=== PATIENT | female | born 1970 | race Caucasian/White ===

== ENCOUNTER → 2025-03-19 09:50 | Outpatient (REF) | payer SELFPAY | LOC: RAD 09:50 | PROVIDERS: ATTENDING PHYSICIAN Physician Assistant | DX: E78.2 Mixed hyperlipidemia (principal) | CPT/HCPCS: 75571 ==

== ENCOUNTER → 2025-08-18 11:17 | Outpatient (REF) | payer OTHER, SELFPAY | LOC: REG 11:17 | PROVIDERS: ATTENDING PHYSICIAN Physician Assistant | DX: R06.2 Wheezing (principal) | CPT/HCPCS: 71046 ==

== ENCOUNTER → 2025-10-11 09:38 | Outpatient (REF) | payer OTHER, SELFPAY | LOC: HWRAD 09:38 | PROVIDERS: ATTENDING PHYSICIAN Physician Assistant | DX: F17.210 Nicotine dependence, cigarettes, uncomplicated (principal); F17.200 Nicotine dependence, unspecified, uncomplicated | CPT/HCPCS: 71271 ==